=== PATIENT | female | born 1935 | race Caucasian/White ===

== ENCOUNTER 2022-08-25 09:58 | Inpatient (IN) ==
--- NOTE | 2022-08-25 10:17 | DR.GENAD ---
HPI Time Seen Time Seen by Provider: 08/25/22 10:15 HPI Comment HPI Comment: PATIENT IS 87YR OLD FEMALE IN ER WITH INCREASING WEAKNESS AND SOB TIMES Complaint/Symptoms Chief Complaint Doctors Comments: GENERALIZED WEAKNESS, SOB TIMES COVID-19 Coronavirus risk:travel/contact w/high risk person: No Has patient experienced Coronavirus symptoms: No Nurses notes reviewed Nurses Notes Review: Yes Source History Provided: Patient and Family Member Mode of Arrival Mode of Arrival: Wheelchair ROS Review of Systems Constitutional: Weakness and Fatigue; negative Fever Eyes: No Symptoms Reported ENTM: Nose Congestion; negative Nose Discharge Respiratoy: Moist Cough and Short of Breath; negative Wheezing Cardiovascular: No Symptoms Reported; negative Chest Pain or Edema Gastrointestinal/Abdominal: No Symptoms Reported; negative Abdominal Pain, Diarrhea or Vomiting Genitourinary: No Symptoms Reported; negative Dysuria Neurological: Weakness; negative Headache or Dizziness Musculoskeletal: No Symptoms Reported; negative Muscle Pain Integumentary: Dryness; negative Rash or Juandice Hematologic/Lymphatic: Easy Bleeding and Easy Bruising Endocrine: No Symptoms Reported; negative Increased Thirst or Increased Urine Psychiatric: No Symptoms Reported All Other Systems: Reviewed and Negative PE Vital Signs Vitals: Temperature 97.8 F Pulse Rate 92 Respiratory Rate 18 Blood Pressure 129/56 O2 Sat by Pulse Oximetry 96 General Limitations: No Limitations Head Head Exam: Normal Inspection and Atraumatic Eyes Eye exam: Normal Appearance; negative Scleral Icterus or Conjunctival Injection (CONJUNCTIVA PALE.) ENT ENT Exam: Normal Exam; negative Normal Oropharynx, Normal External Ear Exam or TM's Normal Bilaterally External Ear Exam: negative Mastoid Tenderness TM/Canal Exam: Bilateral: Normal Throat Exam: negative Tonsillar Erythema, Tonsillomegaly or Tonsillar Exudate Neck Neck Exam: Normal Inspection and Trachea Midline; negative Tenderness Chest Chest Inspection: Normal Inspection and Symmetric Chest Wall Rise; negative Tenderness Respiratory Respiratory Exam: Normal Lung Sounds Bilat and Respiratory Distress; negative Accessory Muscle Use or Chest Wall Tenderness Respiratory Exam: Bilateral: Rhonchi Cardiovascular Cardiovascular Exam: Regular Rate, Normal Rhythm, Normal Heart Sounds and Systolic Murmur; negative Diastolic Murmur Abdominal Exam Abdominal Exam: Normal Inspection, Normal Bowel Sounds and Soft; negative Tenderness Extremities Extremities Exam: Normal Inspection and Normal Capillary Refill Back Back Exam: Normal Inspection; negative (R) CVA Tenderness or (L) CVA Tenderness Neurologic Neurological Exam: Alert and Oriented X3; negative Motor Sensory Deficit Psychiatric Psychiatric Exam: Normal Affect and Normal Mood Skin Skin Exam: Rash ROR Labs Reviewed Result Diagrams: 08/25/22 10:08/25/22 10:27 Laboratory: WBC 9.7 X10^3/uL (3.6-10.0) 08/25/22 10: RBC 2.62 X10^6/uL (3.5-5.4) L 08/25/22 10:27 Hgb 7.4 g/dL (12.0-16.0) L 08/25/22 10:27 Hct 22.4 % (36.0-47.0) L 08/25/22 10:27 MCV 85.4 fL (80.0-100.0) 08/25/22 10: MCH 28.1 pg (27.0-34.0) 08/25/22 10: MCHC 32.9 g/dL (33.0-35.0) L 08/25/22 10: RDW 17.0 % (11.6-16.5) H 08/25/22 10:27 Plt Count 429 X10^3/uL (150.0-450.0) 08/25/22 10:27 MPV 7.7 fL (7.4-11.0) 08/25/22 10:27 Neut % (Auto) 78.0 % (42.0-75.0) H 08/25/22 10:27 Lymph % (Auto) 12.6 % (21.0-51.0) L 08/25/22 10:27 [place] % (Auto) 7.2 % (0.0-13.0) 08/25/22 10:27 Eos % (Auto) 1.6 % (0.9-2.9) 08/25/22 10:27 Baso % (Auto) 0.6 % (0.2-1.0) 08/25/22 10:27 Neut # (Auto) 7.6 x10^3/uL (2.2-4.8) H 08/25/22 10:27 Lymph # (Auto) 1.2 X10^3/uL (1.3-2.9) L 08/25/22 10:27 [place] # (Auto) 0.7 x10^3/uL (0.3-0.8) 08/25/22 10:27 Eos # (Auto) 0.2 x10^3/uL (0.0-0.2) 08/25/22 10:27 Baso # (Auto) 0.1 X10^3/uL (0.0-0.1) 08/25/22 10:27 Absolute Nucleated RBC 0.2 /100WBC 08/25/22 10:27 Sample Site Rbra 08/25/22 10:18 ABG pH 7.400 (7.35-7.45) 08/25/22 10:18 ABG pCO2 27.0 mmHg (35.0-45.0) L 08/25/22 10:18 ABG pO2 53.0 mmHg (80.0-100.0) L 08/25/22 10:18 ABG HCO3 16.7 mmol/L (22-26) L* 08/25/22 10:18 ABG O2 Saturation 87.0 % (90-100) L 08/25/22 10:18 ABG Base Excess -6.7 mmol/L (-2.0-2.0) L 08/25/22 10:18 Ru Test N/a 08/25/22 10:18 A-a Gradient 63.0 mmHg 08/25/22 10:18 FiO2 21.0 08/25/22 10:18 Blood Gas Comments Pt adela well elj 08/25/22 10:18 Sodium 133 mmol/L (136-145) L 08/25/22 10:27 Corrected Sodium TNP 08/25/22 10:27 Potassium 4.9 mmol/L (3.5-5.1) 08/25/22 10:27 Chloride 102 mmol/L (98-107) 08/25/22 10:27 Carbon Dioxide 18.1 mmol/L (21-32) L 08/25/22 10:27 BUN 47 mg/dL (7-18) H 08/25/22 10:27 Creatinine 2.82 mg/dL (0.55-1.02) H 08/25/22 10:27 Est GFR (MDRD) Af Amer 20 (>60) L 08/25/22 10:27 Est GFR (MDRD) Non-Af 17 (>60) L 08/25/22 10:27 Glucose 92 mg/dL (65-99) 08/25/22 10:27 Calcium 8.8 mg/dL (8.5-10.1) 08/25/22 10:27 Corrected Calcium 10.3 mg/dL (8.5-10.1) H 08/25/22 10:27 Total Bilirubin 1.00 mg/dL (0.2-1.0) 08/25/22 10:27 AST 65 Units/L (15-37) H 08/25/22 10:27 ALT 21 Units/L (12-78) 08/25/22 10:27 Alkaline Phosphatase 130 Units/L (46-116) H 08/25/22 10:27 B-Natriuretic Peptide 351 pg/mL (0-79) H 08/25/22 10:27 Total Protein 6.3 g/dL (6.4-8.2) L 08/25/22 10:27 Albumin 2.1 g/dL (3.4-5.0) L 08/25/22 10:27 Globulin 4.2 g/dL (2.5-4.5) 08/25/22 10:27 Albumin/Globulin Ratio 0.5 Ratio (1.1-2.1) L 08/25/22 10:27 Specimen Type Clean catch urine 08/25/22 11:04 Urine Color Yellow (YELLOW) 08/25/22 11:04 Urine Appearance Hazy (CLEAR) 08/25/22 11:04 Urine pH 5.0 (5.0 - 8.0) 08/25/22 11:04 Ur Specific [place] 1.015 (1.000-1.030) 08/25/22 11:04 Urine Protein 2+ (NEGATIVE) 08/25/22 11:04 Urine Glucose (UA) Negative (NEGATIVE) 08/25/22 11:04 Urine Ketones 1+ (NEGATIVE) 08/25/22 11:04 Urine Blood 5+ (NEGATIVE) 08/25/22 11:04 Urine Nitrite Negative (NEGATIVE) 08/25/22 11:04 Urine Bilirubin Negative (NEGATIVE) 08/25/22 11:04 Urine Urobilinogen Normal (NORMAL) 08/25/22 11:04 Ur Leukocyte Esterase 3+ (NEGATIVE) 08/25/22 11:04 Urine RBC 10-20 /HPF (0-3) A 08/25/22 11:04 Urine WBC Tntc /HPF (0-5) A 08/25/22 11:04 Ur Squamous Epith Cells Moderate /HPF (NEGATIVE) 08/25/22 11:04 Amorphous Sediment 1+ /HPF (NEGATIVE) 08/25/22 11:04 Urine Bacteria 1+ /HPF (NEGATIVE) 08/25/22 11:04 Ur Culture Indicated? Yes/culture set up 08/25/22 11:04 SARS-CoV-2 (PCR) Negative (NEGATIVE) 08/25/22 10:48 Influenza Type A (PCR) Negative (NEGATIVE) 08/25/22 10:48 Influenza Type B (PCR) Negative (NEGATIVE) 08/25/22 10:48 RSV (PCR) Negative (NEGATIVE) 08/25/22 10:48 Opioid Opioid Risk Tool Total: 0 Total Score Risk Category: Low Risk Copyright: Coleman SANCHEZ predicting aberrant behaviors Discharge Plan Diagnosis Discharge Problem: UTI (urinary tract infection), Generalized weakness, CHF (congestive heart failure), Anemia, Bronchitis, Cancer of kidney, Lung metastasis, Dehydration Discharge Plan Patient Disposition: 09 ADMITTED INPATIENT Condition: Stable Orders to Discharge Patient Discharge Orders: Transfer (Routine); Ordered 08/25/22 Ordered By: ORACIO RICHARDS
[2022-08-25 10:27] LABS: ABG BASE EXCESS -6.7 mmol/L (-2.0-2.0)
[2022-08-25 10:28] LABS: ABG HCO3 16.7 mmol/L (22-26)
[2022-08-25 10:38] LABS: EOSINOPHILS # (AUTO) 0.2 x10^3/uL (0.0-0.2); HEMOGLOBIN 7.4 g/dL (12.0-16.0); LYMPHOCYTES # (AUTO) 1.2 X10^3/uL (1.3-2.9); LYMPHOCYTES % (AUTO) 12.6 % (21.0-51.0)
[2022-08-25 10:41] LABS: BASOPHILS # (AUTO) 0.1 X10^3/uL (0.0-0.1); BASOPHILS % (AUTO) 0.6 % (0.2-1.0); EOSINOPHILS % (AUTO) 1.6 % (0.9-2.9); HEMATOCRIT 22.4 % (36.0-47.0); MEAN CORPUSCULAR HEMOGLOBIN 28.1 pg (27.0-34.0); MEAN CORPUSCULAR HGB CONC 32.9 g/dL (33.0-35.0); MEAN CORPUSCULAR VOLUME 85.4 fL (80.0-100.0); MEAN PLATELET VOLUME 7.7 fL (7.4-11.0); MONOCYTES # (AUTO) 0.7 x10^3/uL (0.3-0.8); MONOCYTES % (AUTO) 7.2 % (0.0-13.0); NEUTROPHILS # (AUTO) 7.6 x10^3/uL (2.2-4.8); RED BLOOD COUNT 2.62 X10^6/uL (3.5-5.4); WHITE BLOOD COUNT 9.7 X10^3/uL (3.6-10.0)
[2022-08-25 10:47] LABS: ALANINE AMINOTRANSFERASE 21 Units/L (12-78); ALBUMIN 2.1 g/dL (3.4-5.0); ALKALINE PHOSPHATASE 130 Units/L (46-116); ASPARTATE AMINO TRANSFERASE 65 Units/L (15-37); BLOOD UREA NITROGEN 47 mg/dL (7-18); CALCIUM 8.8 mg/dL (8.5-10.1); CARBON DIOXIDE 18.1 mmol/L (21-32); CHLORIDE 102 mmol/L (98-107); COR CA(FOR HYPOALB) 10.3 mg/dL (8.5-10.1); CREATININE 2.82 mg/dL (0.55-1.02); SODIUM 133 mmol/L (136-145); TOTAL PROTEIN 6.3 g/dL (6.4-8.2); eGFR NON BLACK RACES 17 (>60)
--- NOTE | 2022-08-25 10:51 | EKG ---
Test Reason : HTN Blood Pressure : */* mmHG Vent. Rate : 98 BPM Atrial Rate : 98 BPM P-R Int : 136 ms QRS Dur : 114 ms QT Int : 378 ms P-R-T Axes : 61 -32 98 degrees QTc Int : 482 ms Normal sinus rhythm Left axis deviation Incomplete right bundle branch block T wave abnormality, consider anterolateral ischemia Prolonged QT Abnormal ECG No previous ECGs available Confirmed by Iban Banegas ([id number]) on 08/26/2022 12:37:21 PM Referred By: Confirmed By: Iban Banegas
[2022-08-25 11:07] LABS: BILIRUBIN,URINE NEGATIVE (NEGATIVE); BLOOD/HEMOGLOBIN,URINE 5+ (NEGATIVE); GLUCOSE, URINE NEGATIVE (NEGATIVE); KETONES,URINE 1+ (NEGATIVE); LEUKOCYTE ESTERASE ,URINE 3+ (NEGATIVE); NITRITES,URINE NEGATIVE (NEGATIVE); PROTEIN,URINE 2+ (NEGATIVE); UROBILINOGEN,URINE NORMAL (NORMAL)
[2022-08-25 11:19] LABS: APPEARANCE,URINE HAZY (CLEAR); BACTERIA,URINE 1+ /HPF (NEGATIVE); COLOR,URINE YELLOW (YELLOW); SQUAMOUS EPITHELIAL CELL,UR MODERATE /HPF (NEGATIVE)
--- NOTE | 2022-08-25 11:34 | CT ---
HISTORYamsSTUDYBRAIN W/O CONCOMPARISONNoneTECHNIQUEMult iple axial images of the head without contrast. Dose reduction techniques including Automated Exposure Control (AEC) and adjustment of mA and kV were utilized.Contrast: NoneFINDINGSBRAIN PARENCHYMA: No acute hemorrhage, infarct, mass, or mass effect.Gruber-white differentiation is maintained.Scattered white matter chronic small vessel ischemic changes.VENTRICLES/EXTRA-AXIAL SPACES: Unremarkable size and configuration. No hydrocephalus or extra-axial fluid collections.EXTRACRANIAL STRUCTURES:Unremarkable bones and soft tissues. There is mucosal thickening in the left sphenoid and a right posterior ethmoid air cell. Visualized paranasal sinuses and mastoids are otherwise clear.IMPRESSION1. No acute intracranial abnormality. 2. Generalized atrophy and small vessel ischemic disease. 3. 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
--- NOTE | 2022-08-25 11:56 | RAD ---
HISTORYSOBSTUDYPortable AP chestCOMPARISONSeptember 2021, chest CT July 12, 2022FINDINGSThere are large confluent areas of masslike consolidation filling both lungs. There is no evidence for large pleural effusion, bone destruction or pneumothorax. The heart is not enlarged.IMPRESSIONMultiple pulmonary masses, right larger than left, consistent with metastatic disease as suggested on previous imaging studies.Electronically signed by: TERESA MATHIAS (Aug 25, 2022 11:55:16)
[2022-08-25] MEDS ORDERED: ROCEPHIN VIAL 1 GRAM IV ONE (12:36)
[2022-08-25] MEDS ORDERED: ROCEPHIN VIAL 1 GRAM ONE (12:38)
[2022-08-25] MEDS: NS 1,000 ML IV 1,000 ML IV SCH (16:04)
[2022-08-25 20:41] VITALS: BMI 24.1
[2022-08-25] MEDS: DUONEB 0.5 MG/3 MG (3 mL) NEB SCH (20:41)
[2022-08-25] MEDS: PERIACTIN TAB 4 MG PO SCH (21:01)
[2022-08-25] MEDS: DESYREL PO SCH (21:01)
[2022-08-26] MEDS: NS 1,000 ML IV 1,000 ML IV SCH ×3 (03:11→16:07)
[2022-08-26] MEDS: DUONEB 0.5 MG/3 MG (3 mL) NEB SCH ×3 (06:01→21:00)
[2022-08-26 06:21] LABS: INR 1.23 (0.8-1.3)
[2022-08-26 06:26] LABS: BASOPHILS % (AUTO) 0.7 % (0.2-1.0); EOSINOPHILS # (AUTO) 0.2 x10^3/uL (0.0-0.2); EOSINOPHILS % (AUTO) 2.9 % (0.9-2.9); LYMPHOCYTES # (AUTO) 1.1 X10^3/uL (1.3-2.9); LYMPHOCYTES % (AUTO) 15.7 % (21.0-51.0); MEAN CORPUSCULAR HEMOGLOBIN 28.2 pg (27.0-34.0); MEAN CORPUSCULAR HGB CONC 33.1 g/dL (33.0-35.0); MEAN CORPUSCULAR VOLUME 85.2 fL (80.0-100.0); MEAN PLATELET VOLUME 7.6 fL (7.4-11.0); MONOCYTES # (AUTO) 0.5 x10^3/uL (0.3-0.8); MONOCYTES % (AUTO) 7.3 % (0.0-13.0); NEUTROPHILS # (AUTO) 5.3 x10^3/uL (2.2-4.8); NEUTROPHILS % (AUTO) 73.4 % (42.0-75.0); RED BLOOD COUNT 2.29 X10^6/uL (3.5-5.4); RED CELL DISTRIBUTION WIDTH 16.9 % (11.6-16.5); WHITE BLOOD COUNT 7.3 X10^3/uL (3.6-10.0)
[2022-08-26 06:28] LABS: ALBUMIN 1.9 g/dL (3.4-5.0); CALCIUM 8.4 mg/dL (8.5-10.1); CARBON DIOXIDE 20.8 mmol/L (21-32); COR CA(FOR HYPOALB) 10.1 mg/dL (8.5-10.1); CREATININE 2.6 mg/dL (0.55-1.02); HEMOGLOBIN 6.5 g/dL (12.0-16.0); MAGNESIUM 2.4 mg/dL (2.0-2.9); TOTAL PROTEIN 5.7 g/dL (6.4-8.2)
[2022-08-26 06:29] LABS: HEMATOCRIT 19.5 % (36.0-47.0)
--- NOTE | 2022-08-26 07:49 | RAD ---
HISTORYSOBSTUDYAP chestCOMPARISONFebruary 2022FINDINGSHeart size remains normal with similar extent and distribution of bilateral noncalcified pulmonary masses. There is no evidence for complicating pneumothorax or developing pleural effusion.IMPRESSIONNo change since 1 day prior.Electronically signed by: TERESA MATHIAS (Aug 26, 2022 07:48:14)
[2022-08-26] MEDS: ROCEPHIN VIAL 1 GRAM 1 G in NS 100 ML IV 100 ML IV SCH (09:00)
[2022-08-26] MEDS ORDERED: NEURONTIN CAP 100 MG PO SCH (09:00)
[2022-08-26] MEDS: NORVASC TAB 5 MG PO SCH (09:01)
[2022-08-26] MEDS: THYROID 60 MG PO SCH (10:05)
[2022-08-26] MEDS ORDERED: PHARMACY CONSULT - TPN XX SCH (11:00)
[2022-08-26] MEDS: ALBUMIN HUMAN 25%- 100 ML 100 ML IV SCH (11:06)
[2022-08-26] MEDS: PEPCID 20 MG VIAL 20 MG in NS 50 ML IV 50 ML IV SCH ×2 (11:07→22:14)
[2022-08-26] MEDS: CLINIMIX 4.25%-5% 1,000 ML IV SCH (11:07)
[2022-08-26] MEDS ORDERED: BENADRYL INJ 50 MG VIAL IVP ONE (12:30)
[2022-08-26] MEDS ORDERED: TYLENOL 325 MG TAB PO ONE (12:30)
[2022-08-26] MEDS ORDERED: NS 250 ML IV 250 ML IV ONE (13:04)
[2022-08-26] MEDS: LEVSIN/MAALOX/LIDOC VISC PO SCH ×3 (13:48→22:14)
[2022-08-26] MEDS ORDERED: LASIX IVP ONE (16:15)
[2022-08-26 18:53] LABS: BILIRUBIN,URINE NEGATIVE (NEGATIVE); BLOOD/HEMOGLOBIN,URINE 3+ (NEGATIVE); GLUCOSE, URINE NEGATIVE (NEGATIVE); KETONES,URINE NEGATIVE (NEGATIVE); LEUKOCYTE ESTERASE ,URINE NEGATIVE (NEGATIVE); NITRITES,URINE NEGATIVE (NEGATIVE); PROTEIN,URINE 1+ (NEGATIVE); UROBILINOGEN,URINE NORMAL (NORMAL)
[2022-08-26 19:03] LABS: APPEARANCE,URINE CLEAR (CLEAR); COLOR,URINE PALE YELLOW (YELLOW)
[2022-08-26 19:04] LABS: BACTERIA,URINE NEGATIVE /HPF (NEGATIVE); RBC,URINE 0-2 /HPF (0-3); SQUAMOUS EPITHELIAL CELL,UR RARE /HPF (NEGATIVE)
--- NOTE | 2022-08-26 19:27 | DR.H&P ---
H&P - History & Physical for Day of: H&P Date: 08/25/22 - Chief Complaint Chief Complaint: INCREASING WEAKNESS, SHORTNESS OF BREATH, NON-PRODUCTIVE COUGH, FATIGUE, AND ALTERED MENTAL STATUS - History of Present Illness History of Present Illness: IS A 87 YEAR OLD PATIENT OF OURS. SHE PRESENTED TO THE ER WITH COMPLAINTS OF INCREASING WEAKNESS, SHORTNESS OF BREATH, NON-PRODUCTIVE COUGH, FATIGUE, AND ALTERED MENTAL STATUS. SHE REPORTS THAT SYMPTOMS STARTED ONE DAY PRIOR. 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 ON ARRIVAL TO THE HOSPTIAL, HIS VITALS WERE 97.8-113-22-87%-122/58. SHE WAS PLACED ON NASAL CANNULA AT 2 LPM. LABS WERE OBTAINED. WBC 9.7, RBC 2.62, HGB 7.4, HCT 22.4, PLT COUNT 429, PT 15.1, INR 1.23, PTT 32.6, SODIUM 133, POTASSIUM 4.9, CHLORIDE 102, CARBON DIOXIDE 18.1, BUN 47, CREATININE 2.82, GLUCOSE 92, CALCIUM 8.8, TOTAL BILI 1.00, AST 65, ALT 21, ALK PHOS 130, BNP 351, TOTAL PROTEIN 6.3, ALBUMIN 2.1. A URINALYSIS WAS OBTAINED AND REVEALED: WBC TNTC, RBC 10-20, BACTERIA 1+, LEUKOCYTES 3+, BLOOD 5+, PROTEIN 2+. COVID-19, INFLUENZA, AND RSV NEGATIVE. AN ABG WAS OBTAINED AND REVEALED: PH 7.400, PC02 27, P02 53.0, HC03 16.7, 02 SAT 87, BASE EXCESS -6.7, A-A GRADIENT 63, FI02 21.0. A BRAIN CT WAS OBTAINED AND REVEALED: 1. No acute intracranial abnormality. 2. Generalized atrophy and small vessel ischemic disease. 3. 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 A CHEST XRAY WAS OBTAINED AND REVEALED: Multiple pulmonary masses, right larger than left, consistent with metastatic disease as suggested on previous imaging studies. EKG WAS OBTAINED AND REVEALED: NORMAL SINUS RHYTHM WITH HR 98. IN THE ER, SHE WAS GIVEN ROCEPHIN 1G IV X 1 DOSE. SHE WAS ADMITTED TO THE HOSPITAL FOR FURTHER EVALUATION AND TREATMENT OF ANEMIA, DEHYDRATION, ACUTE BRONCHTIS, UTI, AND KIDNEY CANCER. SHE WAS STARTED ON NORMAL SALINE AT 50 ML/HR, TPN AT 50 ML/HR, ROCEPHIN 1G IV DAILY, ALBUMIN 25% IV DAILY, PEPCID 20MG IV BID, GI COCKTAIL 10ML PO QID, 20MG IV DAILY, PROTONIX 40MG IV BID, DUONEBS TID. HER HOME MEDICATIONS OF NORVASC, PERIACTIN, TRUSOPT EYE DROPS, NEURONTIN, ULTRAM, AND DESYREL WERE RESUMED. OTHERWISE, WE PLANNED TO FOLLOW-UP WITH AM LABS AND CONTINUE TO MONITOR. TIME SPENT ON CLINICAL ASSESSMENT, REVIEWING LABS AND IMAGING, DECISION MAKING, AND DOCUMENTATION GREATER THAN 75 MINUTES. 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, GLAUCOMA, MACULAR DEGENERATION - Past Surgical History Surgical History: Cholecystectomy, Hysterectomy, Tonsillectomy - Family History Family Medical History: Cancer, Hypertension - Social History Does patient currently use any type of tobacco product: No Have you used tobacco products in the last 12 months: No Type of Tobacco Use: None Does any household member use tobacco: No Alcohol Use: None Drug Use: None - Medications Home Medications: No Known Allergies Allergy (Verified 08/25/22 10:20) CONTINUE taking the following medications amlodipine 5 mg tablet 5 mg PO QDAY 08/25/22 [History] cyproheptadine 4 mg tablet 4 mg PO DAILY 08/25/22 [History] gabapentin 100 mg capsule 100 mg PO QPM 08/25/22 [History] hydrochlorothiazide 12.5 mg capsule 12.5 mg PO QDAY 08/25/22 [History] thyroid (pork) 60 mg tablet ([place] Thyroid) 60 mg PO QDAY 08/25/22 [History] tramadol 50 mg tablet 50 mg PO Q6H PRN 08/25/22 [History] trazodone 100 mg tablet 100 mg PO QPM 08/25/22 [History] - Review of Systems Constitutional: See HPI, Weakness, Malaise Eyes: No Symptoms Reported ENT: No Symptoms Reported Respiratory: Cough, Shortness of Breath, SOB with Excertion Cardiovascular: No Symptoms Reported Gastrointestinal: No Symptoms Reported Genitourinary: No Symptoms Reported Musculoskeletal: Back Pain Skin: No Symptoms Reported Neurological: Weakness, Confusion - Physical Exam Vital Signs: Temperature 98.2 F Pulse Rate [Radial] 91 Pulse Rate 90 Respiratory Rate 18 Blood Pressure [Left Arm] 120/58 Blood Pressure 129/56 O2 Sat by Pulse Oximetry 94 Oriented: Normal Eyes: Normal Ear: Normal Nose: Normal Throat: Normal Respiratory: Diminished Throughout Cardiovascular: Normal : Normal Auscultation: Bowel Sounds: Normal Palpation: Normal Tenderness: Normal Skin: Normal Musculoskeletal: Back:Lumbar Psychiatric: Normal Mood Description: Calm Affect: Normal Speech Pattern: Clear - Assessment/Plan (1) Anemia Qualifiers: Anemia type: unspecified type Qualified Code(s): D64.9 - Anemia, unspecified Status: Acute Plan: ADMIT, TRANSFUSE 2 UNITS PRBC, NORMAL SALINE AT 50 ML/HR, TPN AT 50 ML/HR, ROCEPHIN 1G IV DAILY, ALBUMIN 25% IV DAILY, PEPCID 20MG IV BID, GI COCKTAIL 10ML PO QID, 20MG IV DAILY, PROTONIX 40MG IV BID, DUONEBS TID. HER HOME MEDICATIONS OF NORVASC, PERIACTIN, TRUSOPT EYE DROPS, NEURONTIN, ULTRAM, AND DESYREL WERE RESUMED (2) Dehydration Status: Acute (3) Acute bronchitis Qualifiers: Bronchitis organism: unspecified organism Qualified Code(s): J20.9 - Acute bronchitis, unspecified Status: Acute (4) UTI (urinary tract infection) Qualifiers: Urinary tract infection type: acute cystitis Hematuria presence: with hematuria Qualified Code(s): N30.01 - Acute cystitis with hematuria Status: Acute (5) Cancer of kidney Qualifiers: Laterality: left Qualified Code(s): C64.2 - Malignant neoplasm of left kidney, except renal pelvis Status: Acute (6) Lung metastasis Qualifiers: Laterality: bilateral Qualified Code(s): C78.01 - Secondary malignant neoplasm of right lung; C78.02 - Secondary malignant neoplasm of left lung Status: Acute (7) Generalized weakness Status: Acute (8) CHF (congestive heart failure) Qualifiers: Heart failure type: unspecified Heart failure chronicity: unspecified Qualified Code(s): I50.9 - Heart failure, unspecified Status: Chronic (9) HTN (hypertension) Qualifiers: Hypertension type: unspecified Qualified Code(s): I10 - Essential (primary) hypertension Status: Chronic - Allergies Allergies/Adverse Reactions: Allergies Allergy/AdvReac Type Severity Reaction Status Date / Time No Known Allergies Allergy Verified 08/25/22 10:20
[2022-08-26] MEDS: NEURONTIN CAP 100 MG PO SCH (22:13)
[2022-08-26] MEDS: PERIACTIN TAB 4 MG PO SCH (22:13)
[2022-08-26] MEDS: DESYREL PO SCH (22:13)
[2022-08-26] MEDS: PROTONIX INJ 40 MG VIAL IVP SCH (22:14)
[2022-08-26 23:51] LABS: HEMATOCRIT 31.1 % (36.0-47.0)
[2022-08-27] LABS: HEMOGLOBIN 10.5 g/dL (12.0-16.0)
[2022-08-27] MEDS: NS 1,000 ML IV 1,000 ML IV SCH ×2 (01:31→16:34)
[2022-08-27] MEDS: DUONEB 0.5 MG/3 MG (3 mL) NEB SCH ×5 (06:03→21:09)
[2022-08-27 07:15] LABS: ALBUMIN 2.5 g/dL (3.4-5.0); CALCIUM 8.2 mg/dL (8.5-10.1); CARBON DIOXIDE 16.1 mmol/L (21-32); COR CA(FOR HYPOALB) 9.4 mg/dL (8.5-10.1); CREATININE 2.35 mg/dL (0.55-1.02); TOTAL PROTEIN 5.7 g/dL (6.4-8.2)
[2022-08-27 07:38] LABS: BASOPHILS % (AUTO) 0.3 % (0.2-1.0); EOSINOPHILS % (AUTO) 0.2 % (0.9-2.9); HEMATOCRIT 26.5 % (36.0-47.0); HEMOGLOBIN 8.9 g/dL (12.0-16.0); LYMPHOCYTES # (AUTO) 0.7 X10^3/uL (1.3-2.9); LYMPHOCYTES % (AUTO) 6.1 % (21.0-51.0); MEAN CORPUSCULAR HEMOGLOBIN 27.9 pg (27.0-34.0); MEAN CORPUSCULAR HGB CONC 33.6 g/dL (33.0-35.0); MEAN CORPUSCULAR VOLUME 83.1 fL (80.0-100.0); MONOCYTES # (AUTO) 0.6 x10^3/uL (0.3-0.8); MONOCYTES % (AUTO) 4.6 % (0.0-13.0); NEUTROPHILS # (AUTO) 10.7 x10^3/uL (2.2-4.8); NEUTROPHILS % (AUTO) 88.8 % (42.0-75.0); RED BLOOD COUNT 3.19 X10^6/uL (3.5-5.4); RED CELL DISTRIBUTION WIDTH 16.2 % (11.6-16.5); WHITE BLOOD COUNT 12.1 X10^3/uL (3.6-10.0)
[2022-08-27] MEDS: ULTRAM PO PRN (09:00)
[2022-08-27] MEDS: ROCEPHIN VIAL 1 GRAM 1 G in NS 100 ML IV 100 ML IV SCH ×2 (09:01→09:02)
[2022-08-27] MEDS: PEPCID 20 MG VIAL 20 MG in NS 50 ML IV 50 ML IV SCH (09:02)
[2022-08-27] MEDS: ALBUMIN HUMAN 25%- 100 ML 100 ML IV SCH (09:03)
[2022-08-27] MEDS: TRUSOPT PLUS (OPHTH) EACHEYE SCH (09:35)
[2022-08-27] MEDS: NORVASC TAB 5 MG PO SCH (10:00)
[2022-08-27] MEDS: THYROID 60 MG PO SCH (10:00)
[2022-08-27] MEDS: PROTONIX INJ 40 MG VIAL IVP SCH ×2 (10:00→20:41)
[2022-08-27] MEDS: LEVSIN/MAALOX/LIDOC VISC PO SCH ×5 (10:00→20:40)
[2022-08-27] MEDS: CLINIMIX 4.25%-5% 1,000 ML IV SCH (10:37)
--- NOTE | 2022-08-27 13:01 | EKG ---
Test Reason : elevated heart rate Blood Pressure : */* mmHG Vent. Rate : 135 BPM Atrial Rate : * BPM P-R Int : * ms QRS Dur : 122 ms QT Int : 340 ms P-R-T Axes : * -43 113 degrees QTc Int : 510 ms Atrial fibrillation with rapid ventricular response Left axis deviation Right bundle branch block T wave abnormality, consider lateral ischemia Abnormal ECG When compared with ECG of 25-AUG-2022 10:49, Atrial fibrillation has replaced Sinus rhythm ST now depressed in Anterior leads Confirmed by Iban Banegas ([id number]) on 08/30/2022 8:20:14 AM Referred By: Confirmed By: Iban Banegas
[2022-08-27] MEDS ORDERED: ZOFRAN INJ 4 MG VIAL IVP PRN (13:21)
[2022-08-27] MEDS: TOPROL XL PO SCH (13:50)
[2022-08-27] MEDS ORDERED: POTASSIUM CHL 60 MEQ/NS 0.45% 500 ML IV PRN (16:27)
[2022-08-27] MEDS ORDERED: K-RIDER 10 MEQ/NS 100 ML 10 MEQ/100 ML BAG IV PRN (16:27)
[2022-08-27] MEDS ORDERED: POTASSIUM CHLORIDE LIQ 20 MEQ UDC PO PRN (16:27)
[2022-08-27] MEDS ORDERED: MICRO K EXTEN CAP 10 MEQ PO PRN (16:27)
[2022-08-27] MEDS ORDERED: K-DUR TAB 20 MEQ PO PRN (16:27)
[2022-08-27] MEDS ORDERED: MAGNESIUM SULFATE 1 GRAM/100 mL PREMIX 1 G/100 ML BAG IV PRN (16:27)
[2022-08-27] MEDS ORDERED: POTASSIUM CHL 40 MEQ/NS 0.45% 500 ML IV PRN (16:27)
[2022-08-27] MEDS ORDERED: KLOR-CON PO PRN (16:27)
[2022-08-27 18:15] LABS: ABG BASE EXCESS -8.1 mmol/L (-2.0-2.0)
[2022-08-27 18:16] LABS: ABG ALLEN TEST POS
[2022-08-27] MEDS ORDERED: LASIX IVP ONE (18:25)
[2022-08-27] MEDS: DESYREL PO SCH (20:39)
[2022-08-27] MEDS: PERIACTIN TAB 4 MG PO SCH (20:41)
[2022-08-27] MEDS: NEURONTIN CAP 100 MG PO SCH (20:46)
--- NOTE | 2022-08-28 04:57 | RAD ---
HISTORYBRONCHITIS, SOB Relevant Clinical InformationSTUDYCHEST, 1 [id number]/2023FINDINGSThe trachea is midline. The cardiac silhouette is unremarkable. Bilateral pulmonary parenchymal masses. No pneumothorax. The bony thorax is unremarkable.IMPRESSIONStable portable chest.Electronically signed by: Arie Berrios (Aug 28, 2022 04:55:00)
[2022-08-28] MEDS: NS 1,000 ML IV 1,000 ML IV SCH ×2 (05:16→20:00)
[2022-08-28] MEDS: DUONEB 0.5 MG/3 MG (3 mL) NEB SCH ×3 (05:53→21:00)
--- NOTE | 2022-08-28 06:13 | RAD ---
HISTORYShortness of breathSTUDYChest AP [id number] t remains normal in size. Multiple bilateral pulmonary masses are again identified consistent with the patient's known metastatic disease. There may be some accompanying infiltrate present on the right. There is now a right pleural effusion present. No left pleural effusion is identified. No pneumothorax is identified. Bony thorax is unremarkable with the exception of osteopenia and likely bilateral chronic rotator cuff disease.IMPRESSIONNo change diffuse bilateral multiple pulmonary masses consistent with the patient's known metastatic diseaseThere may now be some infiltrate present in the right upper and right lower lobes. There is a new small right pleural effusion present.Electronically signed by: MARISA BURLESON (Aug 28, 2022 06:12:48)
[2022-08-28 06:24] LABS: BASOPHILS % (AUTO) 0.1 % (0.2-1.0); EOSINOPHILS # (AUTO) 0.1 x10^3/uL (0.0-0.2); EOSINOPHILS % (AUTO) 0.4 % (0.9-2.9); HEMATOCRIT 25.9 % (36.0-47.0); HEMOGLOBIN 8.7 g/dL (12.0-16.0); LYMPHOCYTES # (AUTO) 0.6 X10^3/uL (1.3-2.9); MEAN CORPUSCULAR HGB CONC 33.6 g/dL (33.0-35.0); MEAN CORPUSCULAR VOLUME 83.2 fL (80.0-100.0); MEAN PLATELET VOLUME 7.9 fL (7.4-11.0); MONOCYTES # (AUTO) 0.5 x10^3/uL (0.3-0.8); MONOCYTES % (AUTO) 4.2 % (0.0-13.0); NEUTROPHILS # (AUTO) 11.6 x10^3/uL (2.2-4.8); NEUTROPHILS % (AUTO) 90.3 % (42.0-75.0); RED BLOOD COUNT 3.11 X10^6/uL (3.5-5.4); RED CELL DISTRIBUTION WIDTH 16.4 % (11.6-16.5); WHITE BLOOD COUNT 12.8 X10^3/uL (3.6-10.0)
[2022-08-28 06:41] LABS: ALBUMIN 2.5 g/dL (3.4-5.0); CALCIUM 7.9 mg/dL (8.5-10.1); CARBON DIOXIDE 18.5 mmol/L (21-32); COR CA(FOR HYPOALB) 9.1 mg/dL (8.5-10.1); CREATININE 2.37 mg/dL (0.55-1.02); MAGNESIUM 1.8 mg/dL (2.0-2.9); TOTAL PROTEIN 5.9 g/dL (6.4-8.2)
[2022-08-28 07:05] LABS: BAND NEUTROPHILS % 1 % (0-10); PLATELET MORPHOLOGY COMMENT NORMAL (NORMAL)
[2022-08-28] MEDS: ALBUMIN HUMAN 25%- 100 ML 100 ML IV SCH (08:47)
[2022-08-28] MEDS: PEPCID 20 MG VIAL 20 MG in NS 50 ML IV 50 ML IV SCH (08:49)
[2022-08-28] MEDS: TOPROL XL PO SCH (08:51)
[2022-08-28] MEDS: ROCEPHIN VIAL 1 GRAM 1 G in NS 100 ML IV 100 ML IV SCH (08:52)
[2022-08-28] MEDS: ULTRAM PO PRN (08:52)
[2022-08-28] MEDS: PROTONIX INJ 40 MG VIAL IVP SCH ×2 (08:52→21:47)
[2022-08-28] MEDS: TRUSOPT PLUS (OPHTH) EACHEYE SCH (09:00)
[2022-08-28] MEDS: THYROID 60 MG PO SCH (09:00)
[2022-08-28] MEDS: LEVSIN/MAALOX/LIDOC VISC PO SCH ×4 (09:04→21:48)
[2022-08-28] MEDS: CLINIMIX 4.25%-5% 1,000 ML IV SCH (09:06)
[2022-08-28] MEDS: NORVASC TAB 5 MG PO SCH (09:06)
[2022-08-28] MEDS ORDERED: DRUG FILTER EXTENSION SET ONE (10:56)
[2022-08-28] MEDS: CLINIMIX 4.25%-5% 1,000 ML with MVI INJ (ADULT) 10 ML, POTASSIUM CHLORIDE INJ 20 MEQ VI... IV SCH ×4 (11:19)
--- NOTE | 2022-08-28 12:05 | PCM.PROG ---
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 SHE HAS A PMH OF CHF AND HTN. SHE HAS RECEIVED TWO UNITS OF PACKED RED BLOOD CELLS SINCE ADMISSION. AFTER TRANSFUSION YESTERDAY, HGB INCREASED TO 10.5. TODAY, SHE IS ALERT AND ORIENTED, LYING IN BED ON MORNING ROUNDS. SHE CONTINUES TO COMPLAIN OF GENERALIZED WEAKNESS, FATIGUE, NON- PRODUCTIVE COUGH, AND SHORTNESS OF BREATH AT TIMES. HER FAMILY REPORTS THAT SHE CONTINUES WITH CONFUSION AT TIMES. ON EXAMINATION, HEART IS REGULAR IN RATE AND RHYTHM. BILATERAL LUNGS ARE NOTED WITH DIMINISHED LUNG SOUNDS THROUGHOUT. ABDOMEN IS ROUND, SOFT, AND NON-TENDER WITH NORMAL BOWEL SOUNDS NOTED IN ALL QUADRANTS. NO UPPER OR LOWER EXTREMITY EDEMA NOTED. STEPHENS CATHETER NOTED TO BEDSIDE DRAINAGE. HER VITALS THIS MORNING ARE: 98.5-110-16-90%-133/65. LABS WERE OBTAINED. WBC 12.1, RBC 3.19, HGB 8.9, HCT 26.5, PLT COUNT 304, SODIUM 138, POTASSIUM 3.5, CHLORIDE 104, CARBON DIOXIDE 16.1, BUN 43, CREATININE 2.35, GLUCOSE 147, CALCIUM 8.2, MAGNESIUM 1.9, TOTAL BILI 1.50, AST 52, ALT 17, ALK PHOS 114, BNP 585, TOTAL PROTEIN 5.7, ALBUMIN 2.5. A CHEST XRAY WAS OBTAINED AND REVEALED: No change diffuse bilateral multiple pulmonary masses consistent with the patient's known metastatic disease. There may now be some infiltrate present in the right upper and right lower lobes. There is a new small right pleural effusion present. SHE IS CURRENTLY RECEIVING NORMAL SALINE AT 50 ML/HR, TPN AT 50 ML/HR, ROCEPHIN 1G IV DAILY, ALBUMIN 25% IV DAILY, PEPCID 20MG IV BID, GI COCKTAIL 10ML PO QID, 20MG IV DAILY, PROTONIX 40MG IV BID, DUONEBS TID. HER HOME MEDICATIONS OF NORVASC, PERIACTIN, TRUSOPT EYE DROPS, NEURONTIN, ULTRAM, AND DESYREL WERE RESUMED. WE WILL CONTINUE WITH CURRENT PLAN OF CARE TODAY. 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 OTHERWISE, WE WILL FOLLOW-UP WITH AM LABS AND CONTINUE TO MONITOR. TIME SPENT ON CLINICAL ASSESSMENT, REVIWING LABS AND IMAGING, DECISION MAKING, AND DOCUMENTATION GREATER THAN 45 MINUTES. - Past Medical Family Social History Past Med/Fam/Surg Hx: No changes since H&P Allergies: Allergies No Known Allergies Allergy (Verified 08/25/22 10:20) - Review of Systems ROS: No change since H&P - Vital Signs and I&O's Vital Signs: Temperature 98.7 F Pulse Rate [Radial] 104 Pulse Rate 106 Respiratory Rate 18 Blood Pressure [Left Arm] 124/63 Blood Pressure 129/56 O2 Sat by Pulse Oximetry 96 Intake and Output: Intake & Output 08/26/22 08/27/22 08/28/22 08/29/22 11:59 11:59 11:59 11:59 Intake Total 1440 / 1440 4453 / 4453 660 / 660 Output Total 1325 / 1325 1350 / 1350 Balance 1440 / 1440 3128 / 3128 -690 / -690 - Physical Exam Oriented: Person, Place Eyes: Normal Ear: Normal Nose: Normal Throat: Normal Respiratory: Generalized, Diminished Cardiovascular: Normal. negative: Tachycardia, Bradycardia, Irregular, S3, S4, Systolic, Diastolic, Murmur, Edema, Other : Normal Auscultation: Bowel Sounds: Normal. negative: Bruit, Absent, Increased, Decreased, High Pitched, Other Palpation: Normal Tenderness: Normal, Other (Distended). negative: Diffuse, RUQ, RLQ, LUQ, LLQ, Epigastric, Periumbilical, Suprapubic, Mild, Moderate, Severe, Rebound, Guarding, Rigidity Skin: Normal. negative: Decreased Turgur, Rash, Papular, Macular, Maculopapular, Vesicular, Pustular, Petechial, Red, Tender, Hot, Diaphoresis, Wound, Bruising, Ecchymosis, Other Musculoskeletal: Normal. negative: Right, Left, Shoulder, Clavicle, Arm, Elbow, Forearm, Wrist, Hand, Hip, Thigh, Knee, Leg, Ankle, Foot, Back:Thoracic, Back:Lumbar, Back:Midline, Back:Paraspinous, Pelvis, Swelling, Tender, Deformity, Pulse Deficit, Motor Deficit, Sensory Deficit, Instability, Crepitance Psychiatric: Other (Confusion). negative: Normal, Anxiety, Depression, Agitation Mood Description: Calm. negative: Angry, Apathetic, Depressed, Fearful, Flat, Happy, Hostile, Sad, Suspicious, Withdrawn, Anxious, Appropriate, Labile Affect: Normal. negative: Angry, Anxious, Depressed, Flat, Hysterical, Quiet, Violent Speech Pattern: Clear. negative: Appropriate, Unclear, Inappropriate, Delayed, Slurred, Excessive, Aphasic, Artificially Ventilated, Trach(not ventilated) - Laboratory and Diagnostics Result Diagrams: 08/28/22 05:47 08/28/22 05:47 Labs: 08/25/22 11:04 Urine,Clean Catch Urine Culture - Final Laboratory WBC 12.8 X10^3/uL (3.6-10.0) H 08/28/22 05:47 RBC 3.11 X10^6/uL (3.5-5.4) L 08/28/22 05:47 Hgb 8.7 g/dL (12.0-16.0) L 08/28/22 05:47 Hct 25.9 % (36.0-47.0) L 08/28/22 05:47 MCV 83.2 fL (80.0-100.0) 08/28/22 05:47 MCH 28.0 pg (27.0-34.0) 08/28/22 05:47 MCHC 33.6 g/dL (33.0-35.0) 08/28/22 05:47 RDW 16.4 % (11.6-16.5) 08/28/22 05:47 Plt Count 296 X10^3/uL (150.0-450.0) 08/28/22 05:47 Plt Count Comment Adequate (ADEQUATE) 08/28/22 05:47 MPV 7.9 fL (7.4-11.0) 08/28/22 05:47 Neut % (Auto) 90.3 % (42.0-75.0) H 08/28/22 05:47 Lymph % (Auto) 5.0 % (21.0-51.0) L 08/28/22 05:47 [place] % (Auto) 4.2 % (0.0-13.0) 08/28/22 05:47 Eos % (Auto) 0.4 % (0.9-2.9) L 08/28/22 05:47 Baso % (Auto) 0.1 % (0.2-1.0) L 08/28/22 05:47 Neut # (Auto) 11.6 x10^3/uL (2.2-4.8) H 08/28/22 05:47 Lymph # (Auto) 0.6 X10^3/uL (1.3-2.9) L 08/28/22 05:47 [place] # (Auto) 0.5 x10^3/uL (0.3-0.8) 08/28/22 05:47 Eos # (Auto) 0.1 x10^3/uL (0.0-0.2) 08/28/22 05:47 Baso # (Auto) 0.0 X10^3/uL (0.0-0.1) 08/28/22 05:47 Absolute Nucleated RBC 0.0 /100WBC 08/28/22 05:47 Total Counted 100 08/28/22 05:47 Neutrophils % (Manual) 93 % (39-76) H 08/28/22 05:47 Band Neutrophils % 1 % (0-10) 08/28/22 05:47 Lymphocytes % (Manual) 6 % (13-43) L 08/28/22 05:47 Plt Morphology Comment Normal (NORMAL) 08/28/22 05:47 RBC Morphology Normal (NORMAL) 08/28/22 05:47 PT 15.1 SECONDS (11.8-14.3) 08/26/22 05:28 INR Target Range - 08/26/22 05:28 INR 1.23 (0.8-1.3) 08/26/22 05:28 APTT 32.6 SECONDS (22.9-36.5) 08/26/22 05:28 PTT Comment - 08/26/22 05:28 Sample Site Rr 08/27/22 18:10 ABG pH 7.320 (7.35-7.45) L 08/27/22 18:10 ABG pCO2 33.0 mmHg (35.0-45.0) L 08/27/22 18:10 ABG pO2 48.0 mmHg (80.0-100.0) L* 08/27/22 18:10 ABG HCO3 17.0 mmol/L (22-26) L* 08/27/22 18:10 ABG O2 Saturation 80.0 % (90-100) L* 08/27/22 18:10 ABG Base Excess -8.1 mmol/L (-2.0-2.0) L 08/27/22 18:10 Ru Test Pos 08/27/22 18:10 A-a Gradient 110.0 mmHg 08/27/22 18:10 FiO2 28.0 08/27/22 18:10 Blood Gas Comments Pt adela well cdn 08/27/22 18:10 Sodium 135 mmol/L (136-145) L 08/28/22 05:47 Corrected Sodium 136 mmol/L (136-145) 08/28/22 05:47 Potassium 3.4 mmol/L (3.5-5.1) L 08/28/22 05:47 Chloride 102 mmol/L (98-107) 08/28/22 05:47 Carbon Dioxide 18.5 mmol/L (21-32) L 08/28/22 05:47 BUN 47 mg/dL (7-18) H 08/28/22 05:47 Creatinine 2.37 mg/dL (0.55-1.02) H 08/28/22 05:47 Est GFR (MDRD) Af Amer 25 (>60) L 08/28/22 05:47 Est GFR (MDRD) Non-Af 21 (>60) L 08/28/22 05:47 Glucose 133 mg/dL (65-99) H 08/28/22 05:47 Calcium 7.9 mg/dL (8.5-10.1) L 08/28/22 05:47 Corrected Calcium 9.1 mg/dL (8.5-10.1) 08/28/22 05:47 Magnesium 1.8 mg/dL (2.0-2.9) L 08/28/22 05:47 Total Bilirubin 0.70 mg/dL (0.2-1.0) 08/28/22 05:47 AST 43 Units/L (15-37) H 08/28/22 05:47 ALT 15 Units/L (12-78) 08/28/22 05:47 Alkaline Phosphatase 116 Units/L (46-116) 08/28/22 05:47 B-Natriuretic Peptide 953 pg/mL (0-79) H* 08/28/22 05:47 Total Protein 5.9 g/dL (6.4-8.2) L 08/28/22 05:47 Albumin 2.5 g/dL (3.4-5.0) L 08/28/22 05:47 Globulin 3.4 g/dL (2.5-4.5) 08/28/22 05:47 Albumin/Globulin Ratio 0.7 Ratio (1.1-2.1) L 08/28/22 05:47 Specimen Type Catherized urine 08/26/22 18:25 Urine Color Pale yellow (YELLOW) 08/26/22 18:25 Urine Appearance Clear (CLEAR) 08/26/22 18:25 Urine pH 6.0 (5.0 - 8.0) 08/26/22 18:25 Ur Specific [place] 1.015 (1.000-1.030) 08/26/22 18:25 Urine Protein 1+ (NEGATIVE) 08/26/22 18:25 Urine Glucose (UA) Negative (NEGATIVE) 08/26/22 18:25 Urine Ketones Negative (NEGATIVE) 08/26/22 18:25 Urine Blood 3+ (NEGATIVE) 08/26/22 18:25 Urine Nitrite Negative (NEGATIVE) 08/26/22 18:25 Urine Bilirubin Negative (NEGATIVE) 08/26/22 18:25 Urine Urobilinogen Normal (NORMAL) 08/26/22 18:25 Ur Leukocyte Esterase Negative (NEGATIVE) 08/26/22 18:25 Urine RBC 0-2 /HPF (0-3) 08/26/22 18:25 Urine WBC None seen /HPF (0-5) 08/26/22 18:25 Ur Squamous Epith Cells Rare /HPF (NEGATIVE) 08/26/22 18:25 Amorphous Sediment 1+ /HPF (NEGATIVE) 08/25/22 11:04 Urine Bacteria Negative /HPF (NEGATIVE) 08/26/22 18:25 Ur Culture Indicated? No/not indicated 08/26/22 18:25 SARS-CoV-2 (PCR) Negative (NEGATIVE) 08/25/22 10:48 Influenza Type A (PCR) Negative (NEGATIVE) 08/25/22 10:48 Influenza Type B (PCR) Negative (NEGATIVE) 08/25/22 10:48 RSV (PCR) Negative (NEGATIVE) 08/25/22 10:48 Blood Type A POSITIVE 08/26/22 10:30 Antibody Screen Negative 08/26/22 10:30 Crossmatch See Detail 08/26/22 10:30 - Plan (1) Anemia Status: Acute Qualifiers: Anemia type: unspecified type Qualified Code(s): D64.9 - Anemia, unspecified Plan: NORMAL SALINE AT 50 ML/HR, TPN AT 50 ML/HR, ROCEPHIN 1G IV DAILY, ALBUMIN 25% IV DAILY, PEPCID 20MG IV BID, GI COCKTAIL 10ML PO QID, 20MG IV DAILY, PROTONIX 40MG IV BID, DUONEBS TID. HER HOME MEDICATIONS OF NORVASC, PERIACTIN, TRUSOPT EYE DROPS, NEURONTIN, ULTRAM, AND DESYREL WERE RESUMED (2) Dehydration Status: Acute (3) Acute bronchitis Status: Acute Qualifiers: Bronchitis organism: unspecified organism Qualified Code(s): J20.9 - Acute bronchitis, unspecified (4) UTI (urinary tract infection) Status: Acute Qualifiers: Urinary tract infection type: acute cystitis Hematuria presence: with hematuria Qualified Code(s): N30.01 - Acute cystitis with hematuria (5) Cancer of kidney Status: Acute Qualifiers: Laterality: left Qualified Code(s): C64.2 - Malignant neoplasm of left kidney, except renal pelvis (6) Lung metastasis Status: Acute Qualifiers: Laterality: bilateral Qualified Code(s): C78.01 - Secondary malignant neoplasm of right lung; 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
--- NOTE | 2022-08-28 12:18 | PCM.PROG ---
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 SHE HAS A PMH OF CHF AND HTN. SHE HAS RECEIVED TWO UNITS OF PACKED RED BLOOD CELLS SINCE ADMISSION. APPARENTLY, SHE HAD AN EPISODE OF HYPOXIA YESTERDAY. HER SATURATIONS DROPPED TO 74% ON OXYGEN VIA NASAL CANNULA AT 2 LPM AT APPROXIMATELY 1805. SHE WAS NOTED TO HAVE AUDITORY WHEEZING AT THAT TIME. SHE WAS PLACED ON HEATED HIGH FLOW OXYGEN. SATURATIONS THEN INCREASED TO 99%. SHE WAS ALSO GIVEN A DOSE OF LASIX AND STARTED ON NEBULIZER TREATMENTS. TODAY, SHE IS ALERT AND ORIENTED, LYING IN BED ON MORNING ROUNDS. SHE ANSWERS QUESTIONS APPROPRIATELY THIS MORNING, HOWEVER, FAMILY MEMBER AND STAFF REPORT THAT SHE CONTINUES WITH INTERMITTENT CONFUSION. SHE CONTINUES TO COMPLAIN OF GENERALIZED WEAKNESS, FATIGUE, NON-PRODUCTIVE COUGH, AND SHORTNESS OF BREATH AT TIMES. HER FAMILY REPORTS THAT SHE CONTINUES WITH CONFUSION AT TIMES. ON EXAMINATION, HEART IS REGULAR IN RATE AND RHYTHM. BILATERAL LUNGS ARE NOTED WITH DIMINISHED LUNG SOUNDS THROUGHOUT. ABDOMEN IS ROUND, SOFT, AND NON-TENDER WITH NORMAL BOWEL SOUNDS NOTED IN ALL QUADRANTS. NO UPPER OR LOWER EXTREMITY EDEMA NOTED. STEPHENS CATHETER NOTED TO BEDSIDE DRAINAGE. HER VITALS THIS MORNING ARE: 98.5-110-16-90%-133/65. SHE IS CURRENTLY UTILIZING HEATED HIGH FLOW OXYGEN. LABS WERE OBTAINED. WBC 12.8, RBC 3.11, HGB 8.7, HCT 25.9, PLT COUNT 296, SODIUM 135, POTASSIUM 3.4, CHLORIDE 102, CARBON DIOXIDE 18.5, BUN 47, CREATININE 2.37, GLUCOSE 133, CALCIUM 7.9, MANGESIUM 1.8, AST 43, ALT 15, ALK PHOS 116, BNP 953, TOTAL PROTEIN 5.9, ALBUMIN 2.5. A CHEST XRAY WAS OBTAINED AND REVEALED: The trachea is midline. The cardiac silhouette is unremarkable. Bilateral pulmonary parenchymal masses. No pneumothorax. The bony thorax is unremarkable. SHE IS CURRENTLY RECEIVING NORMAL SALINE AT 50 ML/HR, TPN AT 50 ML/HR, ROCEPHIN 1G IV DAILY, ALBUMIN 25% IV DAILY, PEPCID 20MG IV BID, GI COCKTAIL 10ML PO QID, 20MG IV DAILY, PROTONIX 40MG IV BID, DUONEBS TID, AND THE POTASSIUM AND MAGNESIUM PROTOCOLS. HER HOME MEDICATIONS OF NORVASC, PERIACTIN, TRUSOPT EYE DROPS, NEURONTIN, ULTRAM, AND DESYREL WERE RESUMED. WE WILL CONTINUE WITH CURRENT PLAN OF CARE TODAY. 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 OTHERWISE, WE WILL FOLLOW-UP WITH AM LABS AND CONTINUE TO MONITOR. TIME SPENT ON CLINICAL ASSESSMENT, REVIWING LABS AND IMAGING, DECISION MAKING, AND DOCUMENTATION GREATER THAN 45 MINUTES. - Past Medical Family Social History Past Med/Fam/Surg Hx: No changes since H&P Allergies: Allergies No Known Allergies Allergy (Verified 08/25/22 10:20) - Review of Systems ROS: No change since H&P - Vital Signs and I&O's Vital Signs: Temperature 98.7 F Pulse Rate [Radial] 104 Pulse Rate 106 Respiratory Rate 18 Blood Pressure [Left Arm] 124/63 Blood Pressure 129/56 O2 Sat by Pulse Oximetry 96 Intake and Output: Intake & Output 08/26/22 08/27/22 08/28/22 08/29/22 11:59 11:59 11:59 11:59 Intake Total 1440 / 1440 4453 / 4453 660 / 660 Output Total 1325 / 1325 1350 / 1350 Balance 1440 / 1440 3128 / 3128 -690 / -690 - Physical Exam Oriented: Person, Place Eyes: Normal Ear: Normal Nose: Normal Throat: Normal Respiratory: Generalized, Diminished Cardiovascular: Normal. negative: Tachycardia, Bradycardia, Irregular, S3, S4, Systolic, Diastolic, Murmur, Edema, Other : Normal Auscultation: Bowel Sounds: Normal. negative: Bruit, Absent, Increased, Decreased, High Pitched, Other Tenderness: Normal, Other (Distended). negative: Diffuse, RUQ, RLQ, LUQ, LLQ, Epigastric, Periumbilical, Suprapubic, Mild, Moderate, Severe, Rebound, Guarding, Rigidity Skin: Normal. negative: Decreased Turgur, Rash, Papular, Macular, Maculopapular, Vesicular, Pustular, Petechial, Red, Tender, Hot, Diaphoresis, Wound, Bruising, Ecchymosis, Other Musculoskeletal: Normal. negative: Right, Left, Shoulder, Clavicle, Arm, Elbow, Forearm, Wrist, Hand, Hip, Thigh, Knee, Leg, Ankle, Foot, Back:Thoracic, Back:L umbar, Back:Midline, Back:Paraspinous, Pelvis, Swelling, Tender, Deformity, Pulse Deficit, Motor Deficit, Sensory Deficit, Instability, Crepitance Psychiatric: Other (Confusion). negative: Normal, Anxiety, Depression, Agitation Mood Description: Calm. negative: Angry, Apathetic, Depressed, Fearful, Flat, Happy, Hostile, Sad, Suspicious, Withdrawn, Anxious, Appropriate, Labile Affect: Normal. negative: Angry, Anxious, Depressed, Flat, Hysterical, Quiet, Violent Speech Pattern: Clear. negative: Appropriate, Unclear, Inappropriate, Delayed, Slurred, Excessive, Aphasic, Artificially Ventilated, Trach(not ventilated) - Laboratory and Diagnostics Result Diagrams: 08/28/22 05:47 08/28/22 05:47 Labs: 08/25/22 11:04 Urine,Clean Catch Urine Culture - Final Laboratory WBC 12.8 X10^3/uL (3.6-10.0) H 08/28/22 05:47 RBC 3.11 X10^6/uL (3.5-5.4) L 08/28/22 05:47 Hgb 8.7 g/dL (12.0-16.0) L 08/28/22 05:47 Hct 25.9 % (36.0-47.0) L 08/28/22 05:47 MCV 83.2 fL (80.0-100.0) 08/28/22 05:47 MCH 28.0 pg (27.0-34.0) 08/28/22 05:47 MCHC 33.6 g/dL (33.0-35.0) 08/28/22 05:47 RDW 16.4 % (11.6-16.5) 08/28/22 05:47 Plt Count 296 X10^3/uL (150.0-450.0) 08/28/22 05:47 Plt Count Comment Adequate (ADEQUATE) 08/28/22 05:47 MPV 7.9 fL (7.4-11.0) 08/28/22 05:47 Neut % (Auto) 90.3 % (42.0-75.0) H 08/28/22 05:47 Lymph % (Auto) 5.0 % (21.0-51.0) L 08/28/22 05:47 [place] % (Auto) 4.2 % (0.0-13.0) 08/28/22 05:47 Eos % (Auto) 0.4 % (0.9-2.9) L 08/28/22 05:47 Baso % (Auto) 0.1 % (0.2-1.0) L 08/28/22 05:47 Neut # (Auto) 11.6 x10^3/uL (2.2-4.8) H 08/28/22 05:47 Lymph # (Auto) 0.6 X10^3/uL (1.3-2.9) L 08/28/22 05:47 [place] # (Auto) 0.5 x10^3/uL (0.3-0.8) 08/28/22 05:47 Eos # (Auto) 0.1 x10^3/uL (0.0-0.2) 08/28/22 05:47 Baso # (Auto) 0.0 X10^3/uL (0.0-0.1) 08/28/22 05:47 Absolute Nucleated RBC 0.0 /100WBC 08/28/22 05:47 Total Counted 100 08/28/22 05:47 Neutrophils % (Manual) 93 % (39-76) H 08/28/22 05:47 Band Neutrophils % 1 % (0-10) 08/28/22 05:47 Lymphocytes % (Manual) 6 % (13-43) L 08/28/22 05:47 Plt Morphology Comment Normal (NORMAL) 08/28/22 05:47 RBC Morphology Normal (NORMAL) 08/28/22 05:47 PT 15.1 SECONDS (11.8-14.3) 08/26/22 05:28 INR Target Range - 08/26/22 05:28 INR 1.23 (0.8-1.3) 08/26/22 05:28 APTT 32.6 SECONDS (22.9-36.5) 08/26/22 05:28 PTT Comment - 08/26/22 05:28 Sample Site Rr 08/27/22 18:10 ABG pH 7.320 (7.35-7.45) L 08/27/22 18:10 ABG pCO2 33.0 mmHg (35.0-45.0) L 08/27/22 18:10 ABG pO2 48.0 mmHg (80.0-100.0) L* 08/27/22 18:10 ABG HCO3 17.0 mmol/L (22-26) L* 08/27/22 18:10 ABG O2 Saturation 80.0 % (90-100) L* 08/27/22 18:10 ABG Base Excess -8.1 mmol/L (-2.0-2.0) L 08/27/22 18:10 Ru Test Pos 08/27/22 18:10 A-a Gradient 110.0 mmHg 08/27/22 18:10 FiO2 28.0 08/27/22 18:10 Blood Gas Comments Pt adela well cdn 08/27/22 18:10 Sodium 135 mmol/L (136-145) L 08/28/22 05:47 Corrected Sodium 136 mmol/L (136-145) 08/28/22 05:47 Potassium 3.4 mmol/L (3.5-5.1) L 08/28/22 05:47 Chloride 102 mmol/L (98-107) 08/28/22 05:47 Carbon Dioxide 18.5 mmol/L (21-32) L 08/28/22 05:47 BUN 47 mg/dL (7-18) H 08/28/22 05:47 Creatinine 2.37 mg/dL (0.55-1.02) H 08/28/22 05:47 Est GFR (MDRD) Af Amer 25 (>60) L 08/28/22 05:47 Est GFR (MDRD) Non-Af 21 (>60) L 08/28/22 05:47 Glucose 133 mg/dL (65-99) H 08/28/22 05:47 Calcium 7.9 mg/dL (8.5-10.1) L 08/28/22 05:47 Corrected Calcium 9.1 mg/dL (8.5-10.1) 08/28/22 05:47 Magnesium 1.8 mg/dL (2.0-2.9) L 08/28/22 05:47 Total Bilirubin 0.70 mg/dL (0.2-1.0) 08/28/22 05:47 AST 43 Units/L (15-37) H 08/28/22 05:47 ALT 15 Units/L (12-78) 08/28/22 05:47 Alkaline Phosphatase 116 Units/L (46-116) 08/28/22 05:47 B-Natriuretic Peptide 953 pg/mL (0-79) H* 08/28/22 05:47 Total Protein 5.9 g/dL (6.4-8.2) L 08/28/22 05:47 Albumin 2.5 g/dL (3.4-5.0) L 08/28/22 05:47 Globulin 3.4 g/dL (2.5-4.5) 08/28/22 05:47 Albumin/Globulin Ratio 0.7 Ratio (1.1-2.1) L 08/28/22 05:47 Specimen Type Catherized urine 08/26/22 18:25 Urine Color Pale yellow (YELLOW) 08/26/22 18:25 Urine Appearance Clear (CLEAR) 08/26/22 18:25 Urine pH 6.0 (5.0 - 8.0) 08/26/22 18:25 Ur Specific [place] 1.015 (1.000-1.030) 08/26/22 18:25 Urine Protein 1+ (NEGATIVE) 08/26/22 18:25 Urine Glucose (UA) Negative (NEGATIVE) 08/26/22 18:25 Urine Ketones Negative (NEGATIVE) 08/26/22 18:25 Urine Blood 3+ (NEGATIVE) 08/26/22 18:25 Urine Nitrite Negative (NEGATIVE) 08/26/22 18:25 Urine Bilirubin Negative (NEGATIVE) 08/26/22 18:25 Urine Urobilinogen Normal (NORMAL) 08/26/22 18:25 Ur Leukocyte Esterase Negative (NEGATIVE) 08/26/22 18:25 Urine RBC 0-2 /HPF (0-3) 08/26/22 18:25 Urine WBC None seen /HPF (0-5) 08/26/22 18:25 Ur Squamous Epith Cells Rare /HPF (NEGATIVE) 08/26/22 18:25 Amorphous Sediment 1+ /HPF (NEGATIVE) 08/25/22 11:04 Urine Bacteria Negative /HPF (NEGATIVE) 08/26/22 18:25 Ur Culture Indicated? No/not indicated 08/26/22 18:25 SARS-CoV-2 (PCR) Negative (NEGATIVE) 08/25/22 10:48 Influenza Type A (PCR) Negative (NEGATIVE) 08/25/22 10:48 Influenza Type B (PCR) Negative (NEGATIVE) 08/25/22 10:48 RSV (PCR) Negative (NEGATIVE) 08/25/22 10:48 Blood Type A POSITIVE 08/26/22 10:30 Antibody Screen Negative 08/26/22 10:30 Crossmatch See Detail 08/26/22 10:30 - Plan (1) Anemia Status: Acute Qualifiers: Anemia type: unspecified type Qualified Code(s): D64.9 - Anemia, unspecified Plan: NORMAL SALINE AT 50 ML/HR, TPN AT 50 ML/HR, ROCEPHIN 1G IV DAILY, ALBUMIN 25% IV DAILY, PEPCID 20MG IV BID, GI COCKTAIL 10ML PO QID, 20MG IV DAILY, YON NIX 40MG IV BID, DUONEBS TID, POTASSIUM AND MAGNESIUM PROTOCOLS. HER HOME MEDICATIONS OF NORVASC, PERIACTIN, TRUSOPT EYE DROPS, NEURONTIN, ULTRAM, AND DESYREL WERE RESUMED (2) Dehydration Status: Acute (3) CHF (congestive heart failure) Status: Chronic Qualifiers: Heart failure type: unspecified Heart failure chronicity: acute on chronic Qualified Code(s): I50.9 - Heart failure, unspecified (4) Hypoxia Status: Acute (5) Acute bronchitis Status: Acute Qualifiers: Bronchitis organism: unspecified organism Qualified Code(s): J20.9 - Acute bronchitis, unspecified (6) UTI (urinary tract infection) Status: Acute Qualifiers: Urinary tract infection type: acute cystitis Hematuria presence: with hematuria Qualified Code(s): N30.01 - Acute cystitis with hematuria (7) Cancer of kidney Status: Acute Qualifiers: Laterality: left Qualified Code(s): C64.2 - Malignant neoplasm of left kidney, except renal pelvis (8) Lung metastasis Status: Acute Qualifiers: Laterality: bilateral Qualified Code(s): C78.01 - Secondary malignant neoplasm of right lung; C78.02 - Secondary malignant neoplasm of left lung (9) Generalized weakness Status: Acute (10) Hypokalemia Status: Acute (11) Hypomagnesemia Status: Acute (12) HTN (hypertension) Status: Chronic Qualifiers: Hypertension type: unspecified Qualified Code(s): I10 - Essential (primary) hypertension
[2022-08-28 12:48] LABS: ABG BASE EXCESS -4.4 mmol/L (-2.0-2.0); ABG HCO3 20.2 mmol/L (22-26)
[2022-08-28 12:49] LABS: ABG ALLEN TEST POS
[2022-08-28] MEDS: NEURONTIN CAP 100 MG PO SCH (21:47)
[2022-08-28] MEDS: DESYREL PO SCH (21:47)
[2022-08-28] MEDS: PERIACTIN TAB 4 MG PO SCH (21:49)
--- NOTE | 2022-08-29 02:56 | EKG ---
Test Reason : tachycardia Blood Pressure : */* mmHG Vent. Rate : 125 BPM Atrial Rate : * BPM P-R Int : * ms QRS Dur : 122 ms QT Int : 316 ms P-R-T Axes : * -51 96 degrees QTc Int : 456 ms Atrial fibrillation with rapid ventricular response Right bundle branch block Left anterior fascicular block Bifascicular block Abnormal ECG When compared with ECG of 27-AUG-2022 12:55, (Unconfirmed) No significant change was found Confirmed by Iban Banegas ([id number]) on 08/30/2022 8:15:19 AM Referred By: Confirmed By: Iban Banegas
[2022-08-29] MEDS ORDERED: CARDIZEM INJ 50 MG VIAL IVP ONE (03:08)
[2022-08-29] MEDS ORDERED: NS 100 ML IV 100 ML ONE (03:14)
[2022-08-29] MEDS ORDERED: CARDIZEM INJ 50 MG VIAL ONE (03:15)
[2022-08-29] MEDS ORDERED: CARDIZEM INJ 125 MG VIAL ONE (03:15)
[2022-08-29] MEDS: CARDIZEM INJ 125 MG VIAL 125 MG in NS 100 ML IV 100 ML IV PRN ×2 (03:30→15:49)
[2022-08-29] MEDS: DUONEB 0.5 MG/3 MG (3 mL) NEB SCH ×3 (05:30→21:40)
[2022-08-29 05:37] LABS: ABG BASE EXCESS -6.7 mmol/L (-2.0-2.0); ABG HCO3 18.5 mmol/L (22-26)
[2022-08-29 05:38] LABS: ABG ALLEN TEST POS
[2022-08-29 05:40] LABS: BASOPHILS % (AUTO) 0.2 % (0.2-1.0); EOSINOPHILS % (AUTO) 0.3 % (0.9-2.9); HEMOGLOBIN 8.6 g/dL (12.0-16.0); LYMPHOCYTES # (AUTO) 0.7 X10^3/uL (1.3-2.9); LYMPHOCYTES % (AUTO) 5.8 % (21.0-51.0); MEAN CORPUSCULAR HEMOGLOBIN 27.9 pg (27.0-34.0); MEAN CORPUSCULAR HGB CONC 33.1 g/dL (33.0-35.0); MEAN CORPUSCULAR VOLUME 84.4 fL (80.0-100.0); MEAN PLATELET VOLUME 7.7 fL (7.4-11.0); MONOCYTES # (AUTO) 0.4 x10^3/uL (0.3-0.8); MONOCYTES % (AUTO) 3.5 % (0.0-13.0); NEUTROPHILS # (AUTO) 10.5 x10^3/uL (2.2-4.8); NEUTROPHILS % (AUTO) 90.2 % (42.0-75.0); RED BLOOD COUNT 3.09 X10^6/uL (3.5-5.4); RED CELL DISTRIBUTION WIDTH 16.4 % (11.6-16.5); WHITE BLOOD COUNT 11.6 X10^3/uL (3.6-10.0)
[2022-08-29 05:43] LABS: ALBUMIN 2.5 g/dL (3.4-5.0); CALCIUM 8.4 mg/dL (8.5-10.1); CARBON DIOXIDE 19.3 mmol/L (21-32); COR CA(FOR HYPOALB) 9.6 mg/dL (8.5-10.1); CREATININE 2.41 mg/dL (0.55-1.02); MAGNESIUM 2.2 mg/dL (2.0-2.9); TOTAL PROTEIN 5.9 g/dL (6.4-8.2)
[2022-08-29 05:49] LABS: PLATELET MORPHOLOGY COMMENT NORMAL (NORMAL)
--- NOTE | 2022-08-29 08:10 | RAD ---
HISTORYShortness of breathSTUDYChest AP [id number]/14/2022FINDINGSHear t size is normal. Lungs are well inflated. Multiple bilateral pulmonary masses are identified consistent with the patient's known progressive pulmonary metastatic disease. No pleural effusions are identified. Bony thorax is unremarkable with the exception of osteopenia and likely bilateral chronic rotator cuff disease.IMPRESSIONNo significant change from the prior examinationElectronically signed by: MARISA BURLESON (Aug 29, 2022 08:09:14)
[2022-08-29] MEDS: TOPROL XL PO SCH (08:41)
[2022-08-29] MEDS: NORVASC TAB 5 MG PO SCH (08:41)
[2022-08-29] MEDS: ROCEPHIN VIAL 1 GRAM 1 G in NS 100 ML IV 100 ML IV SCH (08:42)
[2022-08-29] MEDS: PROTONIX INJ 40 MG VIAL IVP SCH ×2 (08:42→20:28)
[2022-08-29] MEDS: LEVSIN/MAALOX/LIDOC VISC PO SCH ×5 (08:44→20:28)
[2022-08-29] MEDS: PEPCID 20 MG VIAL 20 MG in NS 50 ML IV 50 ML IV SCH (08:45)
[2022-08-29] MEDS: ALBUMIN HUMAN 25%- 100 ML 100 ML IV SCH (10:49)
[2022-08-29] MEDS: NS 1,000 ML IV 1,000 ML IV SCH ×2 (10:57→22:11)
[2022-08-29] MEDS: TRUSOPT PLUS (OPHTH) EACHEYE SCH (10:58)
[2022-08-29] MEDS: THYROID 60 MG PO SCH (10:58)
[2022-08-29] MEDS: CLINIMIX 4.25%-5% 1,000 ML with MVI INJ (ADULT) 10 ML, POTASSIUM CHLORIDE INJ 20 MEQ VI... IV SCH ×4 (12:00)
[2022-08-29] MEDS ORDERED: DRUG FILTER EXTENSION SET ONE (12:54)
[2022-08-29] MEDS: MORPHINE SULFATE INJ 2 MG INJ IVP PRN ×3 (19:00→23:11)
[2022-08-29] MEDS: DESYREL PO SCH (20:27)
[2022-08-29] MEDS: PERIACTIN TAB 4 MG PO SCH (20:28)
[2022-08-29] MEDS: NEURONTIN CAP 100 MG PO SCH (20:28)
[2022-08-29] MEDS ORDERED: XYLOCAINE 1 % (PLAIN) ONE (20:44)
--- NOTE | 2022-08-29 21:26 | RAD ---
HISTORYCentral Line PlacementSTUDYCHEST, 1 VIEWCOMPARADENA HE[facility] SYSTEMFeuary 2022 at 6:54 a.m..TECHNIQUEA single frontal view of the chest was obtained.FINDINGSThere are multiple EKG leads and wires seen overlying the patient. There is a MediPort catheter with its tip overlying the superior vena cava. The heart is normal in size. There dense fluffy opacities scattered throughout both lungs which are predominately rounded. These are concerning for metastatic pulmonary nodules. There is no effusion. There is no pneumothorax. The osseous structures are intact.IMPRESSIONLeft MediPort catheter in situ.Multiple large rounded pulmonary opacities concerning for metastatic disease.Electronically signed by: Taisha Calzada (Aug 29, 2022 21:25:26)
--- NOTE | 2022-08-30 00:02 | OR.IMMED ---
IMMEDIATE POST-OP NOTE Immediate Post-Op Note Pre-Op Diagnosis: lung metastasis, lack of IV access Post-Op Diagnosis: same Procedure: left subclavian vein triple lumen catheter placement Description of Procedure: see operative summary Surgeon/Project Surveyor: Thania Estimated Blood Loss: minimal Complications: none Progress Notes: post procedure CXR shows good central line placement and no pneumothorax
[2022-08-30] MEDS: MORPHINE SULFATE INJ 2 MG INJ IVP PRN (03:11)
[2022-08-30] MEDS ORDERED: CARDIZEM INJ 125 MG VIAL ONE (04:09)
[2022-08-30] MEDS ORDERED: NS 100 ML IV 100 ML ONE (04:11)
[2022-08-30 04:44] LABS: ALBUMIN 2.3 g/dL (3.4-5.0); CALCIUM 8.5 mg/dL (8.5-10.1); CARBON DIOXIDE 22.1 mmol/L (21-32); COR CA(FOR HYPOALB) 9.9 mg/dL (8.5-10.1); CREATININE 2.75 mg/dL (0.55-1.02); TOTAL PROTEIN 5.3 g/dL (6.4-8.2)
[2022-08-30 04:54] LABS: BASOPHILS % (AUTO) 0.2 % (0.2-1.0); EOSINOPHILS % (AUTO) 0.2 % (0.9-2.9); HEMATOCRIT 20.3 % (36.0-47.0); LYMPHOCYTES # (AUTO) 0.5 X10^3/uL (1.3-2.9); LYMPHOCYTES % (AUTO) 4.8 % (21.0-51.0); MEAN CORPUSCULAR HEMOGLOBIN 28.6 pg (27.0-34.0); MEAN CORPUSCULAR HGB CONC 33.9 g/dL (33.0-35.0); MEAN CORPUSCULAR VOLUME 84.3 fL (80.0-100.0); MEAN PLATELET VOLUME 7.9 fL (7.4-11.0); MONOCYTES # (AUTO) 0.4 x10^3/uL (0.3-0.8); MONOCYTES % (AUTO) 3.8 % (0.0-13.0); RED BLOOD COUNT 2.41 X10^6/uL (3.5-5.4); RED CELL DISTRIBUTION WIDTH 16.7 % (11.6-16.5)
[2022-08-30 05:01] LABS: HEMOGLOBIN 6.9 g/dL (12.0-16.0)
[2022-08-30 05:08] LABS: BAND NEUTROPHILS % 3 % (0-10)
[2022-08-30 05:09] LABS: PLATELET MORPHOLOGY COMMENT NORMAL (NORMAL)
--- NOTE | 2022-08-30 05:11 | RAD ---
HISTORYSOB Relevant Clinical InformationSTUDYCHEST, 1 [id number]/[id number] trachea is midline. Left Port-A-Cath unchanged with tip in the SVC. The cardiac silhouette is unremarkable. Dense parenchymal opacities throughout both lungs consistent with metastases. The bony thorax is unremarkable.IMPRESSIONMultiple large pulmonary metastases.No significant change from 08/29/2022.Electronically signed by: Arie Berrios (Aug 30, 2022 05:10:30)
[2022-08-30] MEDS: CARDIZEM INJ 125 MG VIAL 125 MG in NS 100 ML IV 100 ML IV PRN (05:12)
[2022-08-30 06:07] LABS: ABG BASE EXCESS -10.1 mmol/L (-2.0-2.0)
[2022-08-30 06:09] LABS: ABG ALLEN TEST POS; ABG HCO3 17.2 mmol/L (22-26)
[2022-08-30] MEDS: DUONEB 0.5 MG/3 MG (3 mL) NEB SCH (06:15)
[2022-08-30] MEDS: LEVSIN/MAALOX/LIDOC VISC PO SCH (08:59)
[2022-08-30] MEDS ORDERED: CLINIMIX 4.25%-5% 1,000 ML with MVI INJ (ADULT) 10 ML, POTASSIUM CHLORIDE INJ 20 MEQ VI... IV SCH ×5 (09:00)
[2022-08-30] MEDS: THYROID 60 MG PO SCH (09:00)
[2022-08-30] MEDS: NORVASC TAB 5 MG PO SCH (09:00)
[2022-08-30] MEDS: PROTONIX INJ 40 MG VIAL IVP SCH (09:24)
[2022-08-30] MEDS ORDERED: MORPHINE SULFATE PCA 30 MG IVP PRN (10:07)
[2022-08-30] MEDS ORDERED: VERSED 100 MG in NS 100 ML IV 80 ML IV PRN (10:07)
--- NOTE | 2022-08-30 11:08 | PCM.PROG ---
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 SHE HAS A PMH OF CHF AND HTN. SHE HAS RECEIVED TWO UNITS OF PACKED RED BLOOD CELLS SINCE ADMISSION. SHE REMAINED HYPOXIC YESTERDAY WHILE ON HEATED HIGH FLOW. SATURATIONS DROPPED INTO THE 80s ON MULTIPLE OCCASIONS. SATURATIONS REMAINED IN THE 80s TO LOW 90s DESPITE INCREASING OXYGEN AND INSTRUCTING PATIENT ON DEEP BREATHING EXERCISES. PATIENT WAS EVENTUALLY PLACED ON THE BIPAP WITH FI02 AT 45% DUE TO INCREASED RESPIRATORY EFFORTS. SHE WAS ALSO PLACED ON A CARDIZEM DRIP DUE TO ATRIAL FIBRI LLATION WITH RVR, NOT CONTROLLED BY METOPROLOL. FI02 HAD BEEN INCREASED TO 50% THIS MORNING. TODAY, SHE IS LYING IN BED WITH EYES CLOSED ON MORNING ROUNDS. SHE IS DIFFICULT TO AROUSE THIS MORNING. SHE DOES MOAN TO PAINFUL STIMULI. ON EXAMINATION, HEART IS REGULAR IN RATE AND RHYTHM. BILATERAL LUNGS ARE NOTED WITH DIMINISHED LUNG SOUNDS THROUGHOUT. ABDOMEN IS ROUND, SOFT, AND NON-TENDER WITH NORMAL BOWEL SOUNDS NOTED IN ALL QUADRANTS. TRACE LOWER EXTREMITY EDEMA NOTED. STEPHENS CATHETER NOTED TO BEDSIDE DRAINAGE. HER VITALS THIS MORNING ARE: 99.2-83-45-94%-131/70. SHE IS CURRENTLY UTILIZING HEATED HIGH FLOW OXYGEN. LABS WERE OBTAINED. WBC 11.6, RBC 3.09, HGB 8.6, HCT 26.0, PLT COUNT 274, SODIUM 135, POTASSIUM 3.8, CHLORIDE 101, CARBON DIOXIDE 19.3, BUN 54, CREATININE 2.41, GLUCOSE 139, CALCIUM 8.4, MAGNESUM 2.2, AST 45, ALT 14, ALK PHOS 126, BNP 844, TOTAL PROTEIN 5.9, ALBUMIN 2.5. A CHEST XRAY WAS OBTAINED AND REVEALED: There are multiple EKG leads and wires seen overlying the patient. There is a MediPort catheter with its tip overlying the superior vena cava. The heart is normal in size. There dense fluffy opacities scattered throughout both lungs which are predominately rounded. These are concerning for metastatic pulmonary nodules. There is no effusion. There is no pneumothorax. The osseous structures are intact. SHE IS CURRENTLY RECEIVING NORMAL SALINE AT 50 ML/HR, TPN AT 50 ML/HR, ROCEPHIN 1G IV DAILY, ALBUMIN 25% IV DAILY, PEPCID 20MG IV BID, GI COCKTAIL 10ML PO QID, 20MG IV DAILY, PROTONIX 40MG IV BID, DUONEBS TID, AND THE POTASSIUM AND MAGNESIUM PROTOCOLS. HER HOME MEDICATIONS OF NORVASC, PERIACTIN, TRUSOPT EYE DROPS, NEURONTIN, ULTRAM, AND DESYREL WERE RESUMED. WE DISCUSSED DECLINING CONDITION WITH PATIENTS CHILDREN, HER SONS. THEY WISH TO DISCUSS COMFORT MEASURES WITH THEIR SISTER AND WILL GIVE US A DECISION IN THE MORNING. WE WILL CONTINUE WITH CURRENT PLAN OF CARE TODAY. OTHERWISE, WE WILL FOLLOW-UP WITH AM LABS AND CONTINUE TO MONITOR. TIME SPENT ON CLINICAL ASSESSMENT, REVIWING LABS AND IMAGING, DECISION MAKING, AND DOCUMENTATION GREATER THAN 45 MINUTES. - Past Medical Family Social History Past Med/Fam/Surg Hx: No changes since H&P Allergies: Allergies No Known Allergies Allergy (Verified 08/25/22 10:20) - Review of Systems ROS: No change since H&P - Vital Signs and I&O's Vital Signs: Temperature 98.2 F Pulse Rate [Radial] 84 Pulse Rate 72 Respiratory Rate 45 Blood Pressure [Left Arm] 124/56 Blood Pressure 104/51 O2 Sat by Pulse Oximetry 93 Intake and Output: Intake & Output 08/27/22 08/28/22 08/29/22 08/30/22 11:59 11:59 11:59 11:59 Intake Total 4453 / 4453 660 / 660 4680 / 4680 1473.0 / 1473.0 Output Total 1325 / 1325 1350 / 1350 650 / 650 440 / 440 Balance 3128 / 3128 -690 / -690 4030 / 4030 1033.0 / 1033.0 - Physical Exam Oriented: Person, Place Eyes: Normal Ear: Normal Nose: Normal Throat: Normal Respiratory: Generalized, Diminished Cardiovascular: Normal. negative: Tachycardia, Bradycardia, Irregular, S3, S4, Systolic, Diastolic, Murmur, Edema, Other : Normal Auscultation: Bowel Sounds: Normal. negative: Bruit, Absent, Increased, Decreased, High Pitched, Other Tenderness: Normal, Other (Distended). negative: Diffuse, RUQ, RLQ, LUQ, LLQ, Epigastric, Periumbilical, Suprapubic, Mild, Moderate, Severe, Rebound, Guarding, Rigidity Skin: Normal. negative: Decreased Turgur, Rash, Papular, Macular, Maculopapular, Vesicular, Pustular, Petechial, Red, Tender, Hot, Diaphoresis, Wound, Bruising, Ecchymosis, Other Musculoskeletal: Normal. negative: Right, Left, Shoulder, Clavicle, Arm, Elbow, Forearm, Wrist, Hand, Hip, Thigh, Knee, Leg, Ankle, Foot, Back:Thoracic, Back:Kayla mbar, Back:Midline, Back:Paraspinous, Pelvis, Swelling, Tender, Deformity, Pulse Deficit, Motor Deficit, Sensory Deficit, Instability, Crepitance Psychiatric: Other (Confusion). negative: Normal, Anxiety, Depression, Agitation Mood Description: Calm. negative: Angry, Apathetic, Depressed, Fearful, Flat, Happy, Hostile, Sad, Suspicious, Withdrawn, Anxious, Appropriate, Labile Affect: Normal. negative: Angry, Anxious, Depressed, Flat, Hysterical, Quiet, Violent Speech Pattern: Unclear, Inappropriate - Laboratory and Diagnostics Result Diagrams: 08/30/22 04:05 08/30/22 04:05 Labs: 08/25/22 11:04 Urine,Clean Catch Urine Culture - Final Laboratory WBC 11.0 X10^3/uL (3.6-10.0) H 08/30/22 04:05 RBC 2.41 X10^6/uL (3.5-5.4) L 08/30/22 04:05 Hgb 6.9 g/dL (12.0-16.0) L* 08/30/22 04:05 Hct 20.3 % (36.0-47.0) L 08/30/22 04:05 MCV 84.3 fL (80.0-100.0) 08/30/22 04:05 MCH 28.6 pg (27.0-34.0) 08/30/22 04:05 MCHC 33.9 g/dL (33.0-35.0) 08/30/22 04:05 RDW 16.7 % (11.6-16.5) H 08/30/22 04:05 Plt Count 232 X10^3/uL (150.0-450.0) 08/30/22 04:05 Plt Count Comment Adequate (ADEQUATE) 08/30/22 04:05 MPV 7.9 fL (7.4-11.0) 08/30/22 04:05 Neut % (Auto) 91.0 % (42.0-75.0) H 08/30/22 04:05 Lymph % (Auto) 4.8 % (21.0-51.0) L 08/30/22 04:05 [place] % (Auto) 3.8 % (0.0-13.0) 08/30/22 04:05 Eos % (Auto) 0.2 % (0.9-2.9) L 08/30/22 04:05 Baso % (Auto) 0.2 % (0.2-1.0) 08/30/22 04:05 Neut # (Auto) 10.0 x10^3/uL (2.2-4.8) H 08/30/22 04:05 Lymph # (Auto) 0.5 X10^3/uL (1.3-2.9) L 08/30/22 04:05 [place] # (Auto) 0.4 x10^3/uL (0.3-0.8) 08/30/22 04:05 Eos # (Auto) 0.0 x10^3/uL (0.0-0.2) 08/30/22 04:05 Baso # (Auto) 0.0 X10^3/uL (0.0-0.1) 08/30/22 04:05 Absolute Nucleated RBC 0.2 /100WBC 08/30/22 04:05 Total Counted 100 08/30/22 04:05 Neutrophils % (Manual) 90 % (39-76) H 08/30/22 04:05 Band Neutrophils % 3 % (0-10) 08/30/22 04:05 Lymphocytes % (Manual) 4 % (13-43) L 08/30/22 04:05 Monocytes % (Manual) 2 % (4-9) L 08/30/22 04:05 Eosinophils % (Manual) 1 % (0-6) 08/30/22 04:05 Plt Morphology Comment Normal (NORMAL) 08/30/22 04:05 RBC Morphology Normal (NORMAL) 08/30/22 04:05 PT 15.1 SECONDS (11.8-14.3) 08/26/22 05:28 INR Target Range - 08/26/22 05:28 INR 1.23 (0.8-1.3) 08/26/22 05:28 APTT 32.6 SECONDS (22.9-36.5) 08/26/22 05:28 PTT Comment - 08/26/22 05:28 Sample Site Rrad 08/30/22 06:06 ABG pH 7.220 (7.35-7.45) L 08/30/22 06:06 ABG pCO2 42.0 mmHg (35.0-45.0) 08/30/22 06:06 ABG pO2 71.0 mmHg (80.0-100.0) L 08/30/22 06:06 ABG HCO3 17.2 mmol/L (22-26) L* 08/30/22 06:06 ABG O2 Saturation 90.0 % (90-100) 08/30/22 06:06 ABG Base Excess -10.1 mmol/L (-2.0-2.0) L 08/30/22 06:06 Ru Test Pos 08/30/22 06:06 A-a Gradient 447.0 mmHg 08/30/22 06:06 FiO2 80.0 08/30/22 06:06 Blood Gas Comments [facility] abg well-mtf 08/30/22 06:06 Sodium 133 mmol/L (136-145) L 08/30/22 04:05 Corrected Sodium 134 mmol/L (136-145) L 08/30/22 04:05 Potassium 4.3 mmol/L (3.5-5.1) 08/30/22 04:05 Chloride 103 mmol/L (98-107) 08/30/22 04:05 Carbon Dioxide 22.1 mmol/L (21-32) 08/30/22 04:05 BUN 66 mg/dL (7-18) H 08/30/22 04:05 Creatinine 2.75 mg/dL (0.55-1.02) H 08/30/22 04:05 Est GFR (MDRD) Af Amer 21 (>60) L 08/30/22 04:05 Est GFR (MDRD) Non-Af 17 (>60) L 08/30/22 04:05 Glucose 137 mg/dL (65-99) H 08/30/22 04:05 Calcium 8.5 mg/dL (8.5-10.1) 08/30/22 04:05 Corrected Calcium 9.9 mg/dL (8.5-10.1) 08/30/22 04:05 Magnesium 2.2 mg/dL (2.0-2.9) 08/29/22 04:37 Total Bilirubin 0.80 mg/dL (0.2-1.0) 08/30/22 04:05 AST 57 Units/L (15-37) H 08/30/22 04:05 ALT 16 Units/L (12-78) 08/30/22 04:05 Alkaline Phosphatase 138 Units/L (46-116) H 08/30/22 04:05 B-Natriuretic Peptide 705 pg/mL (0-79) H* 08/30/22 04:05 Total Protein 5.3 g/dL (6.4-8.2) L 08/30/22 04:05 Albumin 2.3 g/dL (3.4-5.0) L 08/30/22 04:05 Globulin 3.0 g/dL (2.5-4.5) 08/30/22 04:05 Albumin/Globulin Ratio 0.8 Ratio (1.1-2.1) L 08/30/22 04:05 Specimen Type Catherized urine 08/26/22 18:25 Urine Color Pale yellow (YELLOW) 08/26/22 18:25 Urine Appearance Clear (CLEAR) 08/26/22 18:25 Urine pH 6.0 (5.0 - 8.0) 08/26/22 18:25 Ur Specific [place] 1.015 (1.000-1.030) 08/26/22 18:25 Urine Protein 1+ (NEGATIVE) 08/26/22 18:25 Urine Glucose (UA) Negative (NEGATIVE) 08/26/22 18:25 Urine Ketones Negative (NEGATIVE) 08/26/22 18:25 Urine Blood 3+ (NEGATIVE) 08/26/22 18:25 Urine Nitrite Negative (NEGATIVE) 08/26/22 18:25 Urine Bilirubin Negative (NEGATIVE) 08/26/22 18:25 Urine Urobilinogen Normal (NORMAL) 08/26/22 18:25 Ur Leukocyte Esterase Negative (NEGATIVE) 08/26/22 18:25 Urine RBC 0-2 /HPF (0-3) 08/26/22 18:25 Urine WBC None seen /HPF (0-5) 08/26/22 18:25 Ur Squamous Epith Cells Rare /HPF (NEGATIVE) 08/26/22 18:25 Amorphous Sediment 1+ /HPF (NEGATIVE) 08/25/22 11:04 Urine Bacteria Negative /HPF (NEGATIVE) 08/26/22 18:25 Ur Culture Indicated? No/not indicated 08/26/22 18:25 SARS-CoV-2 (PCR) Negative (NEGATIVE) 08/25/22 10:48 Influenza Type A (PCR) Negative (NEGATIVE) 08/25/22 10:48 Influenza Type B (PCR) Negative (NEGATIVE) 08/25/22 10:48 RSV (PCR) Negative (NEGATIVE) 08/25/22 10:48 Blood Type A POSITIVE 08/26/22 10:30 Antibody Screen Negative 08/26/22 10:30 Crossmatch See Detail 08/26/22 10:30 - Plan (1) Anemia Status: Acute Qualifiers: Anemia type: unspecified type Qualified Code(s): D64.9 - Anemia, unspec ified Plan: BIPAP, NORMAL SALINE AT 50 ML/HR, TPN AT 50 ML/HR, ROCEPHIN 1G IV DAILY, ALBUMIN 25% IV DAILY, PEPCID 20MG IV BID, GI COCKTAIL 10ML PO QID, 20MG IV DAILY, PROTONIX 40MG IV BID, DUONEBS TID, POTASSIUM AND MAGNESIUM PROTOCOLS. HER HOME MEDICATIONS OF NORVASC, PERIACTIN, TRUSOPT EYE DROPS, NEURONTIN, ULTRAM, AND DESYREL WERE RESUMED (2) Acute respiratory failure with hypoxia Status: Acute (3) Dehydration Status: Acute (4) CHF (congestive heart failure) Status: Chronic Qualifiers: Heart failure type: unspecified Heart failure chronicity: acute on chronic Qualified Code(s): I50.9 - Heart failure, unspecified (5) Hypoxia Status: Acute (6) Acute bronchitis Status: Acute Qualifiers: Bronchitis organism: unspecified organism Qualified Code(s): J20.9 - Acute bronchitis, unspecified (7) UTI (urinary tract infection) Status: Acute Qualifiers: Urinary tract infection type: acute cystitis Hematuria presence: with hematuria Qualified Code(s): N30.01 - Acute cystitis with hematuria (8) Cancer of kidney Status: Acute Qualifiers: Laterality: left Qualified Code(s): 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
[2022-08-30 12:24] VITALS: BP 103/51
[2022-08-30] MEDS: NS 1,000 ML IV 1,000 ML IV SCH (13:16)
--- NOTE | 2022-08-31 12:57 | DR.OPNOTE ---
OP NOTE Pre-Op Diagnosis: metastatic cancer, in need of IV access. Post-Op Diagnosis: same Procedure Date Date Of Procedure: 08/29/22 Procedure: PROCEDURE: LEFT SUBCLAVIAN CENTRAL LINE PLACEMENT NARRATIVE: Patient was in the ICU and placed in Trendelenburg position. The left neck and left chest were prepped and draped in sterile fashion. Skin under left clavicle infiltrated with 1 % Xylocaine as was the left chest wall . A 16 gauge needle used to puncture the left subclavian vein and a 0.035 inch guide wire placed without difficulty. Incision made over the guide wire at the skin edge and the dilator was placed over the guide wire then removed. The triple Lumen catheter placed over the guide wire. Guide wire removed. All 3 ports were aspirated of blood blood and flushed with heparinized saline . The catheter secured to the skin with interrupted 3-0 silk sutures. Post-procedure chest x- ray showed good placement of the catheter with no pneumothorax. Type of Anesthesia: Local (1 % Xylocaine) EBL: minimal Complications:: none Needle/Sponge Count:: correct Disposition/Condition: Pt. tolerated procedure without difficulty. Extubated in the OR and taken to PACU in stable condition.
== END 2022-08-30 17:00 | disposition expired | DRG 202 ==
LOC: ER 09:58 → MED/SURG 12:41 → ICU 08-29 05:34 → MED/SURG 08-30 11:46
PROVIDERS: ADMIT Internal Medicine; ATTEND Internal Medicine
DX: Z20.822 Contact with and (suspected) exposure to COVID-19; I87.2 Venous insufficiency (chronic) (peripheral); N30.01 Acute cystitis with hematuria; M06.9 Rheumatoid arthritis, unspecified; R53.1 Weakness; I48.91 Unspecified atrial fibrillation; R06.02 Shortness of breath; Z66 Do not resuscitate; C78.01 Secondary malignant neoplasm of right lung; E86.0 Dehydration; J96.01 Acute respiratory failure with hypoxia; I11.0 Hypertensive heart disease with heart failure; C78.02 Secondary malignant neoplasm of left lung; E03.8 Other specified hypothyroidism; I50.9 Heart failure, unspecified; D64.89 Other specified anemias; R41.82 Altered mental status, unspecified; C64.2 Malignant neoplasm of left kidney, except renal pelvis; E83.42 Hypomagnesemia; J20.8 Acute bronchitis due to other specified organisms; J90 Pleural effusion, not elsewhere classified